=== PATIENT | male | born 1950 | race Caucasian/White ===

== ENCOUNTER → 2017-07-26 | Outpatient (REF) | payer BC, MEDICARE ==
[~2017-07-26] MED LIST: AMLO10TA2 PO; ASPI81TA85 PO; CARV25TA PO; COLA100C5 PO; FENO48TA2 PO; FURO20TA2 PO; KLOR1TAB69 PO; LISI30TA4 PO; METF10004 PO; MS C15TA8 PO; NIAC250T3 PO; OXYC-141 PO; PERCOCET PO; SIMV40TA2 PO; TRAZ50TA11 PO; VYTO10TA25 PO; ZETI10TA30 PO
[2017-07-26 11:53] LABS: MEAN CORPUSCULAR HEMOGLOBIN 30.4 pg (27.0-33.0); MEAN CORPUSCULAR HGB CONC 33.9 g/dl (32.0-36.5); MEAN CORPUSCULAR VOLUME 89.5 fl (80.0-96.0); PLATELET COUNT, AUTOMATED 262 10^3/uL (150-450); RED CELL DISTRIBUTION WIDTH 12.2 % (11.5-14.5); WHITE BLOOD COUNT 6.5 10^3/uL (4.0-10.0)
[2017-07-26 12:24] LABS: ALBUMIN 3.9 GM/DL (3.2-5.2); ALBUMIN/GLOBULIN RATIO 1.15 (1.00-1.93); ALKALINE PHOSPHATASE 79 U/L (45-117); ALT/SGPT 17 U/L (12-78); ANION GAP 8 MEQ/L (8-16); AST/SGOT 10 U/L (7-37); BILIRUBIN,TOTAL 0.6 MG/DL (0.2-1.0); BLOOD UREA NITROGEN 12 MG/DL (7-18); CALCIUM LEVEL 9.2 MG/DL (8.8-10.2); CARBON DIOXIDE LEVEL 31 MEQ/L (21-32); CHLORIDE LEVEL 104 MEQ/L (98-107); CHOLESTEROL LEVEL 243 MG/DL (<200); CREATININE FOR GFR 0.91 MG/DL (0.70-1.30); GLOMERULAR FILTRATION RATE > 60.0 (>49); GLUCOSE, FASTING 110 MG/DL (80-110); POTASSIUM SERUM 4.2 MEQ/L (3.5-5.1); SODIUM LEVEL 143 MEQ/L (136-145); TOTAL PROTEIN 7.3 GM/DL (6.4-8.2); TRIGLYCERIDES LEVEL 208 MG/DL (<150)
== END ==
LOC: M SFHCCLAY 07:33
PROVIDERS: ATTEND Family Medicine
DX: I25.10 Atherosclerotic heart disease of native coronary artery without angina pectoris (principal); Z85.46 Personal history of malignant neoplasm of prostate; R73.03 Prediabetes; E78.2 Mixed hyperlipidemia

== ENCOUNTER → 2017-10-31 | Outpatient (REF) | payer BC, MEDICARE | LOC: M SFHCCLAY 16:07 | DX: F32.9 Major depressive disorder, single episode, unspecified (principal); Z53.9 Procedure and treatment not carried out, unspecified reason ==

== ENCOUNTER → 2018-05-07 | Outpatient (REF) | payer BC, MEDICARE ==
[2018-05-07 18:11] LABS: HEMATOCRIT 42.2 % (42.0-52.0); HEMOGLOBIN 14.3 g/dl (13.5-17.5); MEAN CORPUSCULAR HEMOGLOBIN 31.6 pg (27.0-33.0); MEAN CORPUSCULAR HGB CONC 33.9 g/dl (32.0-36.5); MEAN CORPUSCULAR VOLUME 93.2 fl (80.0-96.0); PLATELET COUNT, AUTOMATED 231 10^3/uL (150-450); RED BLOOD COUNT 4.53 10^6/uL (4.30-6.10); RED CELL DISTRIBUTION WIDTH 11.4 % (11.5-14.5); WHITE BLOOD COUNT 5.5 10^3/uL (4.0-10.0)
[2018-05-07 18:19] LABS: ESTIMATED AVERAGE GLUCOSE 117 MG/DL (60-110); HEMOGLOBIN A1c 5.7 %
[2018-05-07 18:24] LABS: ALBUMIN/GLOBULIN RATIO 1.18 (1.00-1.93); ALKALINE PHOSPHATASE 76 U/L (45-117); ALT/SGPT 22 U/L (12-78); ANION GAP 9 MEQ/L (8-16); AST/SGOT 17 U/L (7-37); BILIRUBIN,TOTAL 0.6 MG/DL (0.2-1.0); BLOOD UREA NITROGEN 13 MG/DL (7-18); CALCIUM LEVEL 8.9 MG/DL (8.8-10.2); CARBON DIOXIDE LEVEL 30 MEQ/L (21-32); CHLORIDE LEVEL 95 MEQ/L (98-107); CREATININE FOR GFR 0.92 MG/DL (0.70-1.30); GLOMERULAR FILTRATION RATE > 60.0 (>42); GLUCOSE, FASTING 114 MG/DL (70-100); POTASSIUM SERUM 3.8 MEQ/L (3.5-5.1); SODIUM LEVEL 134 MEQ/L (136-145); TOTAL PROTEIN 7.4 GM/DL (6.4-8.2)
[2018-05-07 18:55] LABS: CREATININE, URINE 90.1 MG/DL
[2018-05-07 22:37] LABS: MAU/CREAT RATIO 5.6 MCG/MG (0.0-30.0)
== END ==
LOC: M SFHCCLAY 13:36
DX: Z85.46 Personal history of malignant neoplasm of prostate (principal); E78.5 Hyperlipidemia, unspecified; E11.9 Type 2 diabetes mellitus without complications; Z95.2 Presence of prosthetic heart valve; I25.10 Atherosclerotic heart disease of native coronary artery without angina pectoris
CPT/HCPCS: 80053

== ENCOUNTER → 2018-05-07 | Outpatient (CLI) | payer BC, MEDICARE | LOC: M CLY 13:51 | DX: M54.2 Cervicalgia (principal) | CPT/HCPCS: 72050; G0463 ==

== ENCOUNTER → 2019-01-16 | Outpatient (REF) | payer BC, MEDICARE ==
[~2019-01-16] MED LIST changes: -AMLO10TA2 PO; +AMLO10TA5 PO; +LISI-672 PO; -LISI30TA4 PO; +TRAZ-160 PO; -TRAZ50TA11 PO
[2019-01-16 17:37] LABS: HEMOGLOBIN A1c 6.3 %
[2019-01-16 17:49] LABS: MALB URINE SIEMENS 28.5 MG/L; MAU/CREAT RATIO 16.8 MCG/MG (0.0-30.0)
[2019-01-16 17:50] LABS: ALBUMIN 3.4 GM/DL (3.2-5.2); ALT/SGPT 18 U/L (12-78); BILIRUBIN,TOTAL 0.4 MG/DL (0.2-1.0); BLOOD UREA NITROGEN 7 MG/DL (7-18); CALCIUM LEVEL 8.6 MG/DL (8.8-10.2); CARBON DIOXIDE LEVEL 30 MEQ/L (21-32); CHLORIDE LEVEL 102 MEQ/L (98-107); CHOLESTEROL LEVEL 232 MG/DL (<200); CHOLESTEROL RISK RATIO 5.658 (<5); CREATININE FOR GFR 0.87 MG/DL (0.70-1.30); GLOMERULAR FILTRATION RATE > 60.0 (>42); GLUCOSE, FASTING 184 MG/DL (70-100); HDL CHOLESTEROL 41 MG/DL (>40); LDL CHOLESTEROL 135 MG/DL (<100); NON-HDL-C 191 MG/DL; POTASSIUM SERUM 4.2 MEQ/L (3.5-5.1); SODIUM LEVEL 138 MEQ/L (136-145); TOTAL PROTEIN 7.2 GM/DL (6.4-8.2); TRIGLYCERIDES LEVEL 280 MG/DL (<150)
[2019-01-24 00:15] LABS: CANNABINOID, URINE Positive (Cutoff=20); CARBOXY THC (GC/MS) 31 ng/mL (Cutoff=10); CODEINE CONFIRM 143000 ng/mL (Cutoff=100); CODEINE, URINE Positive (.); CREATININE, URINE 159.7 mg/dL (20.0-300.0); HYDROCODONE, URINE Negative (Cutoff=100); HYDROMORPHONE, URINE Negative (Cutoff=100); MORPHINE CONFIRM, URINE 16400 ng/mL (Cutoff=100); MORPHINE, URINE Positive (.); OPIATES, URINE Positive ng/mL (Cutoff=300)
== END ==
LOC: M SFHCCLAY 11:23
PROVIDERS: ATTEND Family Medicine
DX: E11.9 Type 2 diabetes mellitus without complications (principal); Z95.2 Presence of prosthetic heart valve; E78.5 Hyperlipidemia, unspecified; Z85.46 Personal history of malignant neoplasm of prostate; I25.10 Atherosclerotic heart disease of native coronary artery without angina pectoris; G89.29 Other chronic pain

== ENCOUNTER → 2019-01-29 | Outpatient (CLI) | payer BC ==
[~2019-01-29] MED LIST changes: -TRAZ-160 PO; +TRAZ-252 PO
--- NOTE | 2019-01-29 12:50 | REP ---
REASON FOR EXAM: Prostate carcinoma presenting with elevated PSA levels and back and hip pain. There are no priors for comparison. After the intravenous administration of 22.0 mCi of technetium-99m MDP a total body bone scan was obtained. Extensive abnormal increased radionuclide accumulation is seen throughout the bony thorax and spine with multifocal increased radionuclide accumulation seen in the skull, right side of the mandible, pelvis, proximal femora, right greater than left, and in the ankles particularly the left medial malleolus. IMPRESSION: Extensive skeletal metastatic disease with a degenerative type uptake pattern also seen in the knees and ankles, but with a suspicious focus of uptake seen in the left ankle medial malleolus. Electronically Signed by Huey De La Cruz DO 01/29/2019 03:35 P
== END ==
LOC: M RAD 07:29
PROVIDERS: ATTEND Family Medicine
DX: C79.51 Secondary malignant neoplasm of bone (principal); C61 Malignant neoplasm of prostate
CPT/HCPCS: 78306; A9503